=== PATIENT | female | born 2000 | race Two or more races ===

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

== ENCOUNTER 2018-01-04 12:45 | Observation (INO) | payer MEDICAID ==
[~2018-01-04] VITALS: Ht 30.5 cm; Wt 0.5 kg
[2018-01-04] MEDS ORDERED: TERBUTALINE SULFATE 1 MG/ML 1ML VIAL SC ONE (13:30)
== END 2018-01-04 15:05 | disposition home or self-care (01) | DRG 563 ==
LOC: LDRP 12:45
PROVIDERS: ADMIT Specialist; ATTEND Specialist
DX: O60.03 Preterm labor without delivery, third trimester (principal); Z87.891 Personal history of nicotine dependence; Z3A.33 33 weeks gestation of pregnancy
CPT/HCPCS: 59025; 81002; 96372; G0378; J3105

== ENCOUNTER 2018-02-07 16:50 | Observation (INO) | payer MEDICAID ==
[~2018-02-07 16:50] MED LIST: NIF10C GT; PREN-96 PO
== END 2018-02-07 18:00 | disposition home or self-care (01) | DRG 566 ==
LOC: LDRP 16:50
PROVIDERS: ADMIT Specialist; ATTEND Specialist
DX: O26.893 Other specified pregnancy related conditions, third trimester (principal); N89.8 Other specified noninflammatory disorders of vagina; Z3A.38 38 weeks gestation of pregnancy
CPT/HCPCS: 59025; 81002; G0378

== ENCOUNTER 2018-02-13 16:35 | Observation (INO) | payer MEDICAID | END 2018-02-13 17:45 | disposition home or self-care (01) | DRG 566 | LOC: LDRP 16:35 | PROVIDERS: ADMIT Specialist; ATTEND Specialist | DX: O26.893 Other specified pregnancy related conditions, third trimester (principal); N89.8 Other specified noninflammatory disorders of vagina; O36.8130 Decreased fetal movements, third trimester, not applicable or unspecified; O62.9 Abnormality of forces of labor, unspecified; R21 Rash and other nonspecific skin eruption; O21.2 Late vomiting of pregnancy; Z3A.39 39 weeks gestation of pregnancy | CPT/HCPCS: 59025; 81002; G0378 ==

== ENCOUNTER 2018-02-19 12:35 | Observation (INO) | payer MEDICAID ==
[~2018-02-19 12:35] MED LIST changes: -NIF10C GT
== END 2018-02-19 14:30 | disposition home or self-care (01) | DRG 566 ==
LOC: LDRP 12:35
PROVIDERS: ADMIT Specialist; ATTEND Specialist
DX: O26.893 Other specified pregnancy related conditions, third trimester (principal); O48.0 Post-term pregnancy; R10.9 Unspecified abdominal pain; Z3A.40 40 weeks gestation of pregnancy
CPT/HCPCS: 59025; 76818; 81002; G0378

== ENCOUNTER 2018-02-21 09:35 | Observation (INO) | payer MEDICAID | END 2018-02-21 11:13 | disposition home or self-care (01) | DRG 566 | LOC: LDRP 09:35 | PROVIDERS: ADMIT Obstetrics & Gynecology; ATTEND Obstetrics & Gynecology | DX: O62.9 Abnormality of forces of labor, unspecified (principal); O99.323 Drug use complicating pregnancy, third trimester; F12.90 Cannabis use, unspecified, uncomplicated; Z3A.40 40 weeks gestation of pregnancy | CPT/HCPCS: 59025; 76818; 81002; G0378 ==

== ENCOUNTER 2018-02-23 15:55 | Observation (INO) | payer MEDICAID | END 2018-02-23 17:45 | disposition home or self-care (01) | DRG 566 | LOC: LDRP 15:55 | PROVIDERS: ADMIT Specialist; ATTEND Specialist | DX: O48.0 Post-term pregnancy (principal); O99.323 Drug use complicating pregnancy, third trimester; F12.90 Cannabis use, unspecified, uncomplicated; Z3A.40 40 weeks gestation of pregnancy | CPT/HCPCS: 59025; 76818; 81002; G0378 ==

== ENCOUNTER 2018-02-24 00:18 | Inpatient (IN) | payer MEDICAID ==
[~2018-02-24] VITALS: Ht 160 cm; Wt 90.3 kg
[2018-02-24] MEDS ORDERED: LACT. RINGERS/OXYTOCIN 20UNITS 1,000 ML IV SCH (00:31)
[2018-02-24] MEDS ORDERED: METHYLERGONOVINE MALEATE 0.2 MG/ML AMP IM PRN (00:45)
[2018-02-24] MEDS ORDERED: PHISODERM TOP SOLN 240ML BTL TOP PRN (00:45)
[2018-02-24] MEDS ORDERED: DERMOPLAST 60ML BOTTLE TOP PRN (00:45)
[2018-02-24] MEDS ORDERED: LIDOCAINE 2% (LOCAL ANESTH.) PF 5ml SDV ID ONE (00:45)
[2018-02-24] MEDS ORDERED: WITCH HAZEL-GLYCERIN PAD TOP PRN (00:45)
[2018-02-24] MEDS ORDERED: NALBUPHINE HCL 10 MG/1ml INJECTION IV PRN (00:45)
[2018-02-24] MEDS: LACTATED RINGER'S 1,000 ML IV SCH ×3 (01:05→10:00)
[2018-02-24 01:35] LABS: Basophils # (auto) 0.1 uL; Eosinophils # (auto) 0.1 uL; Hemoglobin 10.2 g/dL (12.2-16.2); Mean Corpuscular Hgb Conc. 33.2 g/dL (32.0-36.0); Monocytes # (auto) 0.9 uL
[2018-02-24 01:37] LABS: Eosinophils % (auto) 0.5 % (0.0-7.0); Hematocrit 30.7 % (36.0-46.0); Lymphocytes # (auto) 1.8 uL; Lymphocytes % (auto) 18.1 % (10.0-50.0); Mean Corpuscular Hemoglobin 24.6 pg (28.0-32.0); Mean Corpuscular Volume 74.3 fL (80.0-100.0); Monocytes % (auto) 8.6 % (0.0-12.0); Neutrophils # (auto) 7.3 uL; Neutrophils % (auto) 71.8 % (37.0-80.0); Platelet Count (auto) 214 10^3/uL (140-450); Red Blood Cells 4.14 10^6/uL (4.0-5.20); Red Cell Distribution Width 15.7 % (11.8-14.3); White Blood Cell 10.2 10^3/uL (4.4-10.8)
[2018-02-24 01:53] LABS: INR 0.9 (0.9-1.15); Partial Thromboplastin Time 24.3 sec (23.78-33.04); Prothrombin Time 9.7 sec (9.27-12.13)
[2018-02-24 02:04] LABS: Urine Bacteria NONE SEEN /hpf (None Seen); Urine Blood TRACE /uL (Negative); Urine Mucus FEW (None Seen); Urine Specific Gravity 1.007 (1.001-1.035); Urine WBC 4 /hpf (0 - 5)
[2018-02-24 02:07] LABS: Albumin 2.3 g/dL (3.4-5.0); Calcium 8.2 mg/dL (8.5-10.1); Potassium 3.3 mmol/L (3.5-5.1)
[2018-02-24 02:10] LABS: Bilirubin, Total 0.2 mg/dL (0.2-1.0); Total Protein 6.4 g/dL (6.4-8.2)
[2018-02-24 02:15] LABS: Alcohol, Urine < 3.0 mg/dL (0-5); Amphetamine Screen, Urine NEGATIVE (NEGATIVE); Barbiturate Scree,Urine NEGATIVE (NEGATIVE); Benzodiazephine Screen, Urine NEGATIVE (NEGATIVE); Cannabinoid Screen, Urine NEGATIVE (NEGATIVE); Cocaine Screen, Urine NEGATIVE (NEGATIVE); Opiate Scree,Urine NEGATIVE (NEGATIVE); Phencyclidine Screen, Urine NEGATIVE (NEGATIVE)
[2018-02-24] MEDS ORDERED: PROMETHAZINE HCL 25 MG/ML 1ML IV PRN (05:30)
[2018-02-24] MEDS ORDERED: TERBUTALINE SULFATE 1 MG/ML 1ML VIAL SC ONE (06:00)
[2018-02-24] MEDS ORDERED: IBUPROFEN 600 MG TAB PO PRN (13:15)
[2018-02-24] MEDS: DOCUSATE CALCIUM 240 MG CAP PO SCH (13:30)
[2018-02-24 19:15] VITALS: BP 106/58
[2018-02-24 23:04] VITALS: BP 102/53
[2018-02-25 03:12] VITALS: BP 109/62
[2018-02-25 04:08] LABS: RPR Non Reactive (Non Reactive)
[2018-02-25 06:50] VITALS: BP 104/59
[2018-02-25] MEDS ORDERED: TETANUS-DIPTH-ACEL PERTUSSIS 0.5ML SYRG IM ONE (10:00)
[2018-02-25] MEDS: DOCUSATE CALCIUM 240 MG CAP PO SCH (10:00)
[2018-02-25 10:55] VITALS: BP 115/68
== END 2018-02-25 14:25 | disposition home or self-care (01) | DRG 560 ==
LOC: LDRP 00:18 → OBSVTOIN 00:18 → LDRP 01:41
PROVIDERS: ADMIT Specialist; ATTEND Specialist
PROC: 0W8NXZZ Division of Female Perineum, External Approach (ICD-10-PCS; principal; 2018-02-24)
PROC: 0W8NXZZ Division of Female Perineum, External Approach (ICD-10-PCS; 2018-02-24)
PROC: 10D07Z6 Extraction of Products of Conception, Vacuum, Via Natural or Artificial Opening (ICD-10-PCS; 2018-02-24)
DX: O69.81X0 Labor and delivery complicated by cord around neck, without compression, not applicable or unspecified (principal); O72.1 Other immediate postpartum hemorrhage; O77.0 Labor and delivery complicated by meconium in amniotic fluid; Z82.49 Family history of ischemic heart disease and other diseases of the circulatory system; Z37.0 Single live birth; Z3A.40 40 weeks gestation of pregnancy; Z83.3 Family history of diabetes mellitus
CPT/HCPCS: 36415; 59025; 59409; 80053; 80307; 81001; 81002; 85025; 85610; 85730; 86592; 86850; 86900; 86901; 90472; 90715; 96361; 96365; 96366; 96374; 96375; J2001; J2590